=== PATIENT | female | born 1995 | race Caucasian/White ===

== ENCOUNTER 2016-06-11 16:11 | Emergency (ER) | payer OTHER ==
[2016-06-11 16:23] VITALS: BP 125/65; PULSE 63; TEMP 97.7; BMI 37.0
--- NOTE | 2016-06-11 16:37 | PDOC ---
History of Present Illness - General Chief Complaint: Pain, Acute Stated Complaint: ABD PAIN/NAUSEA Time Seen by Provider: 06/11/16 16:33 History Source: Patient Exam Limitations: No Limitations - History of Present Illness Initial Comments: 06/11/16 16:37 CHIEF COMPLAINT: Abdominal pain HISTORY OF PRESENT ILLNESS: This is an otherwise healthy 21 year old female who presents for evaluation of abdominal pain and nausea. She had a wisdom tooth extracted earlier today and took her first dose of APAP/codeine prior to onset of symptoms. She denies fevers/chills, diarrhea/constipation, dysuria, and abnormal vaginal discharge. She does not recall her LMP. Vital signs on arrival are unremarkable. REVIEW OF SYSTEMS: GENERAL/CONSTITUTIONAL: No fever or chills. No weakness. No weight change. HEAD, EYES, EARS, NOSE AND THROAT: No change in vision. No ear pain or discharge. No sore throat. CARDIOVASCULAR: No chest pain or palpitations. RESPIRATORY: No cough, wheezing, or shortness of breath. GASTROINTESTINAL: See HPI. GENITOURINARY: No dysuria, frequency, or change in urination. MUSCULOSKELETAL: No joint or muscle swelling or pain. No neck or back pain. SKIN: No rash or easy bruising. NEUROLOGIC: No headache, vertigo, loss of consciousness, or loss of sensation. PSYCHIATRIC: No depression or anxiety. ENDOCRINE: No increased thirst. No abnormal weight change. HEMATOLOGIC/LYMPHATIC: No anemia, easy bleeding, or history of blood clots. ALLERGIC/IMMUNOLOGIC: No hives or skin allergy. No latex allergy. PHYSICAL EXAM: GENERAL: The patient is awake, alert, and fully oriented, in no acute distress. ENT: Pupils equal, round and reactive to light, extraocular movements intact, sclera anicteric, conjunctiva clear. Neck supple. LUNGS: Clear to auscultation bilaterally. Normal excursion. No respiratory distress or use of accessory muscles. CV: RRR, S1/S2, no MRG. Cap refill < 2 sec. ABDOMEN: Soft, non-distended, non-tender. EXTREMITIES: Normal range of motion, no edema. NEUROLOGICAL: Normal speech, normal gait. CN II-XII grossly intact. PSYCH: Normal mood, normal affect. SKIN: Warm, dry, normal turgor, no rashes or lesions noted. Past History - Past Medical History Allergies/Adverse Reactions: Allergies Allergy/AdvReac Type Severity Reaction Status Date / Time No Known Drug Allergies Allergy Verified 06/11/16 16:19 Home Medications: Ambulatory Orders Vitamins (Sjr) - 1 tab PO DAILY #30 tablet 11/21/14 Ferrous Sulfate [Feosol] 325 mg PO QID 01/24/16 Ibuprofen [Motrin -] 600 mg PO QID #28 tablet 03/03/16 Cephalexin [Keflex] 500 mg PO Q6H #20 capsule 06/11/16 Ondansetron [Zofran Odt -] 4 mg SL TID PRN #21 od.tablet 06/11/16 Asthma: No Cancer: No Cardiac Disorders: No Diabetes: No HTN: No Seizures: No Thyroid Disease: No Other medical history: DENIES. - Surgical History Cholecystectomy: Yes - Reproductive History (#): 4 Para: 3 Therapeutic (s) & number: No (0) Spontaneous : 0 - Psycho/Social/Smoking Cessation Hx Anxiety: No Suicidal Ideation: No Smoking History: Never smoked Have you smoked in the past 12 months: No Hx Alcohol Use: No Drug/Substance Use Hx: No Substance Use Type: None Hx Substance Use Treatment: No *Physical Exam - Vital Signs Last Vital Signs Temp Pulse Resp BP Pulse Ox 97.7 F 63 19 125/65 99 06/11/16 16:19 06/11/16 16:19 06/11/16 16:19 06/11/16 16:19 06/11/16 16:19 ED Treatment Course - LABORATORY CBC & Chemistry Diagram: 06/11/16 17:20 06/11/16 17:20 Medical Decision Making - Medical Decision Making 06/11/16 17:06 A/P: 21 year old female with abdominal pain and nausea. No tenderness to palpation. Suspect codeine adverse reaction. -Basic labs -Pepcid and Zofran for symptomatic relief -PO trial 06/11/16 18:10 AST mildly elevated at 86. 06/11/16 18:23 UA with trace leukesterase, pos nitrites. Culture sent; will treat with Keflex. 06/11/16 18:33 WBC 17.4. *DC/Admit/Observation/Transfer Diagnosis at time of Disposition: Abdominal pain Qualifiers: Abdominal location: generalized Qualified Code(s): R10.84 - Generalized abdominal pain Urinary tract infection Qualifiers: Urinary tract infection type: acute cystitis Hematuria presence: without hematuria Qualified Code(s): N30.00 - Acute cystitis without hematuria - Discharge Dispostion Disposition: HOME Condition at time of disposition: Stable - Prescriptions Prescriptions: Cephalexin [Keflex] 500 mg PO Q6H #20 capsule Ondansetron [Zofran Odt -] 4 mg SL TID PRN #21 od.tablet PRN Reason: Nausea - Referrals Referrals: Amanda Toure MD [Staff Physician] - 3 days - Patient Instructions Printed Discharge Instructions: DI for Abdominal Pain-Adult, DI for Urinary Tract Infection (UTI) Additional Instructions: You were seen today for abdominal pain. You were diagnosed with urinary tract infection. Take antibiotics as prescribed and use Zofran as prescribed if needed for nausea. Your white blood cell count (indicator of infection) was elevated today at 17.4. One of your liver function tests was also mildly elevated (AST 86). Please follow up with your primary care doctor (referral enclosed if you do not have one) for repeat blood work on Tuesday. Return here for worsening abdominal pain, vomiting/inability to keep down fluids , fever, or any other concerning symptoms.
[2016-06-11] MEDS ORDERED: ONDANSETRON 4 MG/2 ML VIAL IVPUSH ONE (16:52)
[2016-06-11] MEDS ORDERED: FAMOTIDINE 20 MG/50 ML IVPB 50 ML IVPB ONE ×2 (16:52→17:16)
[2016-06-11] MEDS ORDERED: ONDANSETRON 4 MG/2 ML VIAL ONE (17:16)
[2016-06-11 17:41] LABS: BASOPHIL 0.2 % (0-2.0); EOSINOPHIL 0.4 % (0-4.5); MCH 23.9 pg (25.7-33.7); MCHC 32.5 g/dl (32.0-36.0); MEAN CELL VOLUME 73.5 fl (80-96); MEAN PLT VOLUME 8.2 fl (7.5-11.1); NEUTROPHILS 80.9 % (42.8-82.8); PLATELET COUNT 306 K/MM3 (134-434); RDW 15.2 % (11.6-15.6); WHITE BLOOD COUNT 17.4 K/mm3 (4.0-10.0)
[2016-06-11 18:04] LABS: URINE APPEARANCE CLEAR; URINE BILIRUBIN NEGATIVE (NEGATIVE); URINE BLOOD NEGATIVE (NEGATIVE); URINE COLOR YELLOW; URINE GLUCOSE (UA) NEGATIVE (NEGATIVE); URINE KETONE NEGATIVE (NEGATIVE); URINE NITRITE POSITIVE (NEGATIVE); URINE PROTEIN NEGATIVE (NEGATIVE); URINE UROBILINOGEN NEGATIVE E.U./dl (0.2-1.0)
[2016-06-11 18:05] LABS: ALBUMIN 4.2 g/dl (3.4-5.0); ANION GAP 10 (8-16); BILIRUBIN,TOTAL 0.3 mg/dL (0.2-1.0); CALCIUM 9.2 mg/dL (8.5-10.1); CO2 26 mmol/L (21-32); CREATININE 0.4 mg/dL (0.55-1.02); GLUCOSE,RANDOM 91 mg/dL (74-106); SGOT/AST 86 U/L (15-37); SGPT/ALT 77 U/L (12-78)
[2016-06-11 18:06] LABS: ALK PHOS 135 U/L (45-117)
[2016-06-11 18:19] LABS: URINE LEUK ESTERASE TRACE (NEGATIVE)
[2016-06-11] MEDS ORDERED: CEPHALEXIN MONOHYDRATE 500 MG CAPSULE (UD) PO ONE (18:21)
[2016-06-11] MEDS ORDERED: CEPHALEXIN MONOHYDRATE 250 MG CAPSULE (FP) ONE (18:37)
[2016-06-12 00:13] LABS: URINE BACTERIA RARE /hpf (NONE SEEN); URINE MUCUS RARE; URINE RBC 3 /hpf (0-3); URINE WBC 9 /hpf (3-5)
== END 2016-06-11 18:40 | disposition home or self-care (01) ==
LOC: JER 16:11
PROC: 3E033GC Introduction of Other Therapeutic Substance into Peripheral Vein, Percutaneous Approach (ICD-10-PCS; principal; 2016-06-11)
DX: N30.00 Acute cystitis without hematuria (principal)
CPT/HCPCS: 36415; 80053; 81003; 81015; 83690; 84703; 85025; 87086; 87186; 96365; 96375; 99282-25

== ENCOUNTER 2017-08-06 16:49 | Emergency (ER) | payer OTHER ==
[2017-08-06 16:53] VITALS: BP 120/64; PULSE 96; TEMP 99; BMI 37.0
[2017-08-06] MEDS ORDERED: IBUPROFEN 400 MG TABLET (FP) PO ONE ×2 (17:18→17:23)
--- NOTE | 2017-08-06 17:25 | PDOC ---
History of Present Illness - General Chief Complaint: Sore Throat Stated Complaint: DIFFICULTY SWALLOWING Time Seen by Provider: 08/06/17 17:01 History Source: Patient Exam Limitations: No Limitations - History of Present Illness Initial Comments: 08/06/17 17:24 patient came to ER for eval of acute onset pain and difficulty swallowing since yesterday afternoon. Denies fevers but states is difficult to swallow. Timing/Duration: reports: getting worse Severity: reports: mild Past History - Travel Traveled outside of the country in the last 30 days: Yes Close contact w/someone who was outside of country & ill: Yes - Past Medical History Allergies/Adverse Reactions: Allergies Allergy/AdvReac Type Severity Reaction Status Date / Time No Known Drug Allergies Allergy Verified 08/06/17 16:51 Home Medications: Ambulatory Orders NK [No Known Home Medication] 08/06/17 Asthma: No Cancer: No Cardiac Disorders: No COPD: No DVT: No Dementia: No Diabetes: No HTN: No Seizures: No Thyroid Disease: No - Surgical History Cholecystectomy: Yes (x4) - Reproductive History (#): 4 Para: 3 Therapeutic (s) & number: No (0) Spontaneous : 0 - Suicide/Smoking/Psychosocial Hx Smoking History: Never smoked Have you smoked in the past 12 months: No Information on smoking cessation initiated: No Hx Alcohol Use: No Drug/Substance Use Hx: No Substance Use Type: None Hx Substance Use Treatment: No Respiratory Specific PMHX - Complaint Specific PMHX Bronchitis: No Review of Systems - Review of Systems Able to Perform ROS?: Yes Is the patient limited Kinyarwanda proficient: Yes Constitutional: Yes: Symptoms Reported, See HPI, Fever. No: Malaise HEENTM: Yes: Symptoms Reported, See HPI, Throat Pain, Throat Swelling, Mouth Pain, Difficulty Swallowing Respiratory: Yes: See HPI, Cough Cardiac (ROS): No: Symptoms Reported, Chest Pain ABD/GI: No: Constipated, Diarrhea : No: Symptoms Reported Musculoskeletal: Yes: Symptoms Reported, See HPI Neurological: No: Symptoms reported, Headache All Other Systems: Reviewed and Negative *Physical Exam - Vital Signs Last Vital Signs Temp Pulse Resp BP Pulse Ox 99.0 F 96 H 18 120/64 100 08/06/17 16:51 08/06/17 16:51 08/06/17 16:51 08/06/17 16:51 08/06/17 16:51 - Physical Exam General Appearance: Yes: Nourished, Appropriately Dressed, Apparent Distress HEENT: positive: YENNY, TMs Normal, Pharynx Normal, Tonsillar Exudate, Tonsillar Erythema, Nasal Congestion, Rhinorrhea Neck: positive: Tender, Supple, Lymphadenopathy (R), Lymphadenopathy (L) Respiratory/Chest: positive: Lungs Clear, Normal Breath Sounds Musculoskeletal: positive: Normal Inspection Extremity: positive: Normal Capillary Refill, Normal Inspection, Normal Range of Motion Integumentary: positive: Normal Color Neurologic: 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 *DC/Admit/Observation/Transfer Diagnosis at time of Disposition: Strep pharyngitis - Discharge Dispostion Disposition: HOME Condition at time of disposition: Stable Decision to Admit order: No - Referrals Referrals: Kathleen Curry MD [Primary Care Provider] - - Patient Instructions Printed Discharge Instructions: DI for Pharyngitis/Tonsillopharyngitis -- Adult Additional Instructions: Rest, drink lots of fluids: Teas, water, soups Eat cold things: Ice cream, ice pops, ice chips Saltwater gargles Steamy showers/seem to face break up mucus Avoid contact with others until fevers and pain resolved Lots of handwashing and good hygiene, this is contagious You have been treated with Bicillin LA 1.2 million units injection which is a one-time treatment for strep pharyngitis. You will not need to take any further antibiotics. Tylenol or Motrin for fever and pain Followup with private physician in one to 2 days as needed if not improving Return to emergency department for worsened symptoms, fevers, dehydration - Post Discharge Activity Forms/Work/School Notes: Back to Work
[2017-08-06] MEDS ORDERED: PENICILLIN G BENZATHINE 2,400,000 UNIT/4 ML PFS ONE (17:42)
== END 2017-08-06 17:59 | disposition home or self-care (01) ==
LOC: JERFT 16:49
DX: J02.0 Streptococcal pharyngitis (principal); B95.0 Streptococcus, group A, as the cause of diseases classified elsewhere
CPT/HCPCS: 87070; 87077; 87430; 96372; 99281-25

== ENCOUNTER 2018-05-01 01:01 | Emergency (ER) | payer OTHER ==
--- NOTE | 2018-05-01 01:52 | PDOC ---
History of Present Illness - General Stated Complaint: ABD PAIN Time Seen by Provider: 05/01/18 01:52 Past History - Past Medical History Allergies/Adverse Reactions: Allergies Allergy/AdvReac Type Severity Reaction Status Date / Time No Known Drug Allergies Allergy Verified 08/06/17 16:51 Home Medications: Ambulatory Orders NK [No Known Home Medication] 08/06/17 Asthma: No Cancer: No Cardiac Disorders: No COPD: No DVT: No Dementia: No Diabetes: No HTN: No Seizures: No Thyroid Disease: No - Surgical History Cholecystectomy: Yes (x4) - Reproductive History (#): 4 Para: 3 Therapeutic (s) & number: No (0) Spontaneous : 0 - Suicide/Smoking/Psychosocial Hx Smoking History: Never smoked Have you smoked in the past 12 months: No Hx Alcohol Use: No Drug/Substance Use Hx: No Substance Use Type: None Hx Substance Use Treatment: No *DC/Admit/Observation/Transfer - Referrals Referrals: Poonam Juarez MD [Primary Care Provider] - - Patient Instructions - Post Discharge Activity
[2018-05-01 02:13] VITALS: BMI 39.0
--- NOTE | 2018-05-01 02:34 | PDOC ---
History of Present Illness - General Chief Complaint: Pain Stated Complaint: ABD PAIN Time Seen by Provider: 05/01/18 01:52 History Source: Patient Exam Limitations: No Limitations - History of Present Illness Initial Comments: 05/01/18 02:22 Patient is a 23 year old female with pmhx cholecystectomy, C/S x 4, c/o epigastric pain x 1 hour ago. Pain is a burning, tightening/squeezing 8/10 in the epigastrum that radiates midline to the umbilicus and straight to the back that is assoc/w SOB when she get the pain. States she has been taking Motrin x 1 week intermittently for a wisdom tooth pain post extraction x 3. States tonight was laying on the stomach when the pain started. Denies nausea, vomiting , fever, chills, constipation, diarrhea. No prior episode of this type of pain. PMD: Dr. Cottrell PMHX: neg PSOCHx: neg cig, etoh, durgs ALL: NKDA GENERAL/CONSTITUTIONAL: No fever or chills. No weakness. No weight change. HEAD, EYES, EARS, NOSE AND THROAT: No change in vision. No ear pain or discharge. No sore throat. CARDIOVASCULAR: No chest pain or shortness of breath. RESPIRATORY: No cough, wheezing, or hemoptysis. GASTROINTESTINAL: No nausea, vomiting, diarrhea or constipation. No rectal bleeding. GENITOURINARY: No dysuria, frequency, or change in urination. MUSCULOSKELETAL: No joint or muscle swelling or pain. No neck or back pain. SKIN AND BREASTS: No rash or easy bruising. NEUROLOGIC: No headache, vertigo, loss of consciousness, or loss of sensation. PSYCHIATRIC: No depression or anxiety. ENDOCRINE: No increased thirst. No abnormal weight change. HEMATOLOGIC/LYMPHATIC: No anemia, easy bleeding, or history of blood clots. ALLERGIC/IMMUNOLOGIC: No hives or skin allergy. No latex allergy. GENERAL: The patient is awake, alert, and fully oriented, in no acute distress. HEAD: Normal with no signs of trauma. EYES: Pupils equal, round and reactive to light, extraocular movements intact, sclera anicteric, conjunctiva clear. ENT: Ears normal, nares patent, oropharynx clear without exudates. Moist mucous membranes. NECK: Normal range of motion, supple without lymphadenopathy, JVD, or masses. LUNGS: Breath sounds equal, clear to auscultation bilaterally. No wheezes, and no crackles. HEART: Regular rate and rhythm, normal S1 and S2 without murmur, rub. ABDOMEN: Soft, (+) tenderness to the epigastrum, normoactive bowel sounds. No guarding, no rebound. No masses. EXTREMITIES: Normal range of motion, no edema. No clubbing or cyanosis. No cords, erythema, or tenderness. NEUROLOGICAL: Cranial nerves II through XII grossly intact. Normal speech, normal gait. PSYCH: Normal mood, normal affect. SKIN: Warm, Dry, normal turgor, no rashes or lesions noted. Past History - Past Medical History Allergies/Adverse Reactions: Allergies Allergy/AdvReac Type Severity Reaction Status Date / Time No Known Drug Allergies Allergy Verified 05/01/18 02:13 Home Medications: Ambulatory Orders NK [No Known Home Medication] 08/06/17 Asthma: No Cancer: No Cardiac Disorders: No COPD: No DVT: No Dementia: No Diabetes: No HTN: No Seizures: No Thyroid Disease: No - Surgical History Cholecystectomy: Yes (x4) - Reproductive History (#): 4 Para: 3 Therapeutic (s) & number: No (0) Spontaneous : 0 - Suicide/Smoking/Psychosocial Hx Smoking History: Never smoked Have you smoked in the past 12 months: No Information on smoking cessation initiated: No Hx Alcohol Use: No Drug/Substance Use Hx: No Substance Use Type: None Hx Substance Use Treatment: No *Physical Exam - Vital Signs Last Vital Signs Temp Pulse Resp BP Pulse Ox 98.1 F 83 18 118/67 100 05/01/18 01:05 05/01/18 01:05 05/01/18 01:05 05/01/18 01:05 05/01/18 01:05 Moderate Sedation - Procedure Monitoring Vital Signs: Procedure Monitoring Vital Signs Temperature 98.1 F 05/01/18 01:05 Pulse Rate 83 05/01/18 01:05 Respiratory Rate 18 05/01/18 01:05 Blood Pressure 118/67 05/01/18 01:05 O2 Sat by Pulse Oximetry (%) 100 05/01/18 01:05 ED Treatment Course - LABORATORY CBC & Chemistry Diagram: 05/01/18 02:40 05/01/18 02:40 Medical Decision Making - Medical Decision Making 05/01/18 02:22 Patient is a 23 year old female with pmhx cholecystectomy, C/S x 4, c/o epigastric pain x 1 hour ago. Pain is a burning, tightening/squeezing 8/10 in the epigastrum that radiates midline to the umbilicus and straight to the back that is assoc/w SOB when she get the pain. States she has been taking Motrin x 1 week intermittently for a wisdom tooth pain post extraction x 3. States tonight was laying on the stomach when the pain started. Denies nausea, vomiting , fever, chills, constipation, diarrhea. No prior episode of this type of pain. 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 FINDINGS: Lung bases are clear. The visualized cardiac chambers are normal size and configuration. Status post cholecystectomy without biliary duct dilation. Normal liver, spleen, adrenal glands and kidneys. The stomach and abdominal small and large bowel are normal. There is no aortic aneurysm. There is no significant retroperitoneal lymphadenopathy. The pelvic small and large bowel are normal. The appendix is normal. The uterus and adnexal structures are normal. Urinary bladder is unremarkable. There is no pelvic free fluid. No discrete pelvic lymphadenopathy is identified. IMPRESSION: No localizing signs for acute pathology. One or more of the following dose reduction techniques were used: automated exposure control, adjustment of the mA and/or kV according to patient size, use of iterative reconstructive technique. THIS DOCUMENT HAS BEEN ELECTRONICALLY SIGNED Saurabh La MD 05/01/2018 06:10 MICHAEL MRadha Please call Imaging Cinder Crane Operator [phone] ([phone]) with questions. INTERPRETING RADIOLOGIST: Nabeel La MD Electronically Signed: May 01, 2018 06:11AM EST 05/01/18 06:[address] Hurtado 2 with no response. Patient is tolerating by mouth, has no nausea or vomiting and her pain is controlled. Patient wished instructions to return to the emergency room for worsening symptoms and to follow up with GI on the primary care doctor. I discussed the physical exam findings, ancillary test results and final diagnoses with the patient. I answered all of the patient's questions. The patient was satisfied with the care received and felt comfortable with the discharge plan and treatment plan. The Patient agrees to follow up with the primary care physician within 24-72 hours. *DC/Admit/Observation/Transfer Diagnosis at time of Disposition: Elevated lipase, Elevated liver function tests Abdominal pain Qualifiers: Abdominal location: epigastric Qualified Code(s): R10.13 - Epigastric pain - Discharge Dispostion Disposition: HOME Condition at time of disposition: Stable - Referrals Referrals: Poonam Juarez MD [Primary Care Provider] - Dominic Barbosa MD [Staff Physician] - - Patient Instructions Additional Instructions: Your Discharge Instructions: You must call primary care physician within 24 hours to arrange follow-up. Return to the Emergency Department with any new, persistent or worsening symptoms, for fever, chills, nausea, vomiting, SOB, dizziness or any other concerning changes that may occur. Your amylase, liver enzymes are elevated and it is imperative that you see a digital performance analyst immediately. - Post Discharge Activity
[2018-05-01] MEDS ORDERED: FAMOTIDINE 20 MG/50 ML IVPB 20 MG/50 ML MG IVPB ONE ×2 (02:35→02:40)
[2018-05-01] MEDS ORDERED: ACETAMINOPHEN 1000 MG/100 ML VIAL (NON FORMULARY) IVPB ONE (02:42)
[2018-05-01 02:56] LABS: BASO % 0.4 % (0-2.0); EOS % 2.6 % (0-4.5); HEMOGLOBIN 12.9 GM/dL (10.7-15.3); LYMPH % 25.3 % (8-40); MCH 26.5 pg (25.7-33.7); MCHC 33.9 g/dl (32.0-36.0); MEAN PLT VOLUME 7.9 fl (7.5-11.1); MONO % 6.5 % (3.8-10.2); NEUT % 65.2 % (42.8-82.8); PLATELET COUNT 277 K/MM3 (134-434); RBC 4.88 M/mm3 (3.60-5.2); WHITE BLOOD COUNT 9.9 K/mm3 (4.0-10.0)
[2018-05-01 03:50] LABS: ALBUMIN 3.9 g/dl (3.4-5.0); ALK PHOS 138 U/L (45-117); AMYLASE 84 U/L (25-115); ANION GAP 7 MMOL/L (8-16); BILIRUBIN,TOTAL 0.3 mg/dL (0.2-1); BLOOD UREA NITROGEN 10 mg/dL (7-18); CALCIUM 8.5 mg/dL (8.5-10.1); CHLORIDE 103 mmol/L (98-107); CO2 27 mmol/L (21-32); CREATININE 0.5 mg/dL (0.55-1.3); GLUCOSE,RANDOM 108 mg/dL (74-106); LIPASE 811 U/L (73-393); SGOT/AST 182 U/L (15-37); SGPT/ALT 113 U/L (13-61); SODIUM 137 mmol/L (136-145); TOT PROT 7.5 g/dl (6.4-8.2)
[2018-05-01] MEDS ORDERED: SODIUM CHLORIDE 1,000 ML IV STA (07:41)
--- NOTE | 2018-05-01 07:41 | PDOC ---
*Physical Exam - Vital Signs Last Vital Signs Temp Pulse Resp BP Pulse Ox 98.1 F 83 18 118/67 100 05/01/18 01:05 05/01/18 01:05 05/01/18 01:05 05/01/18 01:05 05/01/18 01:05 - Physical Exam General Appearance: Yes: Appropriately Dressed. No: Apparent Distress HEENT: positive: Normal Voice Neck: positive: Supple Respiratory/Chest: negative: Respiratory Distress Gastrointestinal/Abdominal: positive: Soft. negative: Tender Musculoskeletal: negative: CVA Tenderness Integumentary: positive: Dry, Warm Neurologic: positive: Fully Oriented, Alert, Normal Mood/Affect ED Treatment Course - LABORATORY CBC & Chemistry Diagram: 05/01/18 02:40 05/01/18 02:40 - ADDITIONAL ORDERS Additional order review: Laboratory Results 05/01/18 02:40 Sodium 137 Potassium 4.0 Chloride 103 Carbon Dioxide 27 Anion Gap 7 L BUN 10 Creatinine 0.5 L Creat Clearance w eGFR > 60 Random Glucose 108 H Calcium 8.5 Total Bilirubin 0.3 AST 182 H ALT 113 H Alkaline Phosphatase 138 H Total Protein 7.5 Albumin 3.9 Total Amylase 84 Lipase 811 H Beta HCG, Quant < 1.0 05/01/18 02:40 RBC 4.88 MCV 78.0 L MCHC 33.9 RDW 14.0 MPV 7.9 Neutrophils % 65.2 Lymphocytes % 25.3 D Monocytes % 6.5 Eosinophils % 2.6 D Basophils % 0.4 - Medications Given in the ED: ED Medications Discontinued Medications Generic Name Dose Route Start Last Admin Trade Name Freq PRN Reason Stop Dose Admin Acetaminophen 1,000 mg 05/01/18 02:42 05/01/18 03:01 Ofirmev Injection - IVPB 05/01/18 02:43 1,000 mg ONCE ONE Administration Famotidine/Sodium Chloride 20 mg in 50 mls @ 100 mls/hr 05/01/18 02:35 02:48 Pepcid 20 Mg Premixed Ivpb - IVPB 05/01/18 03:04 100 mls/hr ONCE ONE Administration Medical Decision Making - Medical Decision Making 05/01/18 07:39 Pt signed out to me at 7am 23 yo F, s/p tiara ~6 years ago, here w/ epigastric pain radiating to umbilicus x 2 days. No n/v/f/c/d/c. Lipase found to be elevated to >800 w/ elevated LFTs. CT unremarkable. US pending to assess for possible retained stone. Pain currently improved w/ tylenol. Pt denies ETOH use 05/01/18 12:04 Ultrasound read as fatty liver w/ no intra/extrahepatic ductal dilatation. Patient remains asymptomatic at this time. Will discuss dispo with GI 05/01/18 12:05 05/01/18 12:52 Case d/w Dr Gonzalez who states pt can be discharged given pt has no abd pain, n/v at this time and was witnessed tolerating po here. Had lengthy d/w pt regarding her diagnosis of pancreatitis. Patient to return to ER for recurrence of pain and/or worsening of symptoms. Otherwise to follow-up with GI *DC/Admit/Observation/Transfer Diagnosis at time of Disposition: Elevated lipase, Elevated liver function tests Abdominal pain Qualifiers: Abdominal location: epigastric Qualified Code(s): R10.13 - Epigastric pain Pancreatitis Qualifiers: Chronicity: acute Pancreatitis type: unspecified pancreatitis type Acute pancreatitis complication: no infection or necrosis Qualified Code(s): K85.90 - Acute pancreatitis without necrosis or infection, unspecified - Discharge Dispostion Disposition: HOME Condition at time of disposition: Improved - Referrals Referrals: Poonam Juarez MD [Primary Care Provider] - Dominic Barbosa MD [Staff Physician] - - Patient Instructions Printed Discharge Instructions: Acute Pancreatitis Additional Instructions: Your Discharge Instructions: You must call primary care physician within 24 hours to arrange follow-up. Return to the Emergency Department with any new, persistent or worsening symptoms, for fever, chills, nausea, vomiting, SOB, dizziness or any other concerning changes that may occur. Your amylase, liver enzymes are elevated and it is imperative that you see a cement handler immediately. - Post Discharge Activity
[2018-05-01 07:59] VITALS: BP 140/81; PULSE 92; TEMP 98
== END 2018-05-01 13:20 | disposition home or self-care (01) ==
LOC: JER 01:01
PROC: 3E0337Z Introduction of Electrolytic and Water Balance Substance into Peripheral Vein, Percutaneous Approach (ICD-10-PCS; principal; 2018-05-01)
PROC: 3E033GC Introduction of Other Therapeutic Substance into Peripheral Vein, Percutaneous Approach (ICD-10-PCS; 2018-05-01)
PROC: 3E033NZ Introduction of Analgesics, Hypnotics, Sedatives into Peripheral Vein, Percutaneous Approach (ICD-10-PCS; 2018-05-01)
DX: K85.90 Acute pancreatitis without necrosis or infection, unspecified (principal); R74.8 Abnormal levels of other serum enzymes; R94.5 Abnormal results of liver function studies
CPT/HCPCS: 36415; 74177-TC; 76700-TC; 80053; 82150; 83690; 84702; 85025; 96361; 96365; 96375; 99282-25; J0131; J7030

== ENCOUNTER 2019-11-20 20:49 | Emergency (ER) | payer OTHER ==
--- NOTE | 2019-11-20 21:17 | PDOC ---
Rapid Medical Evaluation Chief Complaint: Pain, Acute Time Seen by Provider: 11/20/19 21:14 Medical Evaluation: Allergies Allergy/AdvReac Type Severity Reaction Status Date / Time No Known Drug Allergies Allergy Verified 05/01/18 02:13 11/20/19 21:15 I have performed a brief in-person evaluation of this patient. The patient presents with a chief complaint of: intermittent lower cramping pelvic pain with urinary frequency and irregular menses. pt using nexplanon control which is due to be changed. Denies vaginal bleeding now. Pertinent physical exam findings: A&O x 3 in NAD I have ordered the following: UA,HCG,UCx, GC/CHL test The patient will proceed to the ED for further evaluation. Discharge Disposition - Diagnosis Pelvic pain - Discharge Dispostion Condition at time of disposition: Stable - Referrals - Patient Instructions - Post Discharge Activity
[2019-11-20 21:26] VITALS: BP 131/72; PULSE 84; TEMP 97.2; BMI 29.9
--- NOTE | 2019-11-20 22:35 | PDOC ---
History of Present Illness - General Chief Complaint: Pain, Acute Stated Complaint: ABD PAIN Time Seen by Provider: 11/20/19 21:14 - History of Present Illness Initial Comments: 11/20/19 22:29 24-year-old female without comorbidities presents for evaluation of pelvic cramping which started today. She has an implantable control in her left arm and over the last year she has been intermittently spotting which is normal. The pelvic cramping started today. Past History - Medical History Allergies/Adverse Reactions: Allergies Allergy/AdvReac Type Severity Reaction Status Date / Time No Known Drug Allergies Allergy Verified 05/01/18 02:13 Home Medications: Ambulatory Orders NK [No Known Home Medication] 08/06/17 Asthma: No Cancer: No Cardiac Disorders: No COPD: No DVT: No Dementia: No Diabetes: No HTN: No Seizures: No Thyroid Disease: No - Surgical History Cholecystectomy: Yes (x4) - Reproductive History Is Patient Now?: No (#): 4 Para: 3 Therapeutic (s) & number: No (0) Spontaneous : 0 - Psycho-Social/Smoking History Smoking History: Never smoked Have you smoked in the past 12 months: No - Substance Abuse Hx (Audit-C & DAST Scrn) How often the patient has a drink containing alcohol: Never Score: In Men: 4 or > Positive; In Women: 3 or > Positive: 0 Screen Result (Pos requires Nsg. Audit-10AR): Negative Review of Systems - Review of Systems : Yes: Pain. No: Burning, Dysuria *Physical Exam - Vital Signs Last Vital Signs Temp Pulse Resp BP Pulse Ox 97.2 F L 84 20 131/72 100 11/20/19 21:16 11/20/19 21:16 11/20/19 21:16 11/20/19 21:16 11/20/19 21:16 - Physical Exam General Appearance: Yes: Appropriately Dressed, Obese. No: Apparent Distress HEENT: positive: Normal ENT Inspection, Normal Voice, Symmetrical Neck: positive: Supple. negative: Rigid Respiratory/Chest: positive: Normal Breath Sounds. negative: Respiratory Distress Female Pelvic Exam: positive: other (Female pelvic examination done with Jojo Avalos in the room nurse practitioner who is taking over the case. Mild cervical motion tenderness right and left adnexal tenderness. No discharge. External genitalia is normal.) Musculoskeletal: positive: Normal Inspection Extremity: positive: Normal Inspection Integumentary: positive: Normal Color, Dry, Warm Medical Decision Making - Medical Decision Making 11/20/19 22:31 test pending ultrasound will be ordered pending results. 11/20/19 22:39 Patient signed out to overnight provider Discharge - Discharge Information Problems reviewed: Yes Clinical Impression/Diagnosis: Pelvic pain Condition: Stable - Follow up/Referral - Patient Discharge Instructions - Post Discharge Activity
--- NOTE | 2019-11-20 23:28 | PDOC ---
*Physical Exam - Vital Signs Last Vital Signs Temp Pulse Resp BP Pulse Ox 97.2 F L 84 20 131/72 100 11/20/19 21:16 11/20/19 21:16 11/20/19 21:16 11/20/19 21:16 11/20/19 21:16 Medical Decision Making - Medical Decision Making 11/21/19 01:41 US and UA negative, will d/c home Discharge - Discharge Information Problems reviewed: Yes Clinical Impression/Diagnosis: Pelvic pain Ovarian cyst Qualifiers: Laterality: left Qualified Code(s): N83.202 - Unspecified ovarian cyst, left side Condition: Stable Disposition: HOME - Follow up/Referral Referrals: Jmii Marte MD [Staff Physician] - Call tomorrow - Patient Discharge Instructions Patient Printed Discharge Instructions: DI for Pelvic Pain Additional Instructions: Take ibuprofen every 6 hours as needed for pain. It is important that you follow-up with the wholesale representative. Return to the emergency room for any worsening symptoms. Return to the ER if you are soaking 2 pads per hour, severe abdominal pain, or worsening symptoms. - Post Discharge Activity Work/Back to School Note: Back to Work
[2019-11-21 00:15] LABS: HCG,QUALITATIVE URINE Negative
[2019-11-21] MEDS ORDERED: IBUPROFEN 600 MG TABLET (FP) PO ONE ×2 (00:22→00:32)
[2019-11-21 01:35] LABS: URINE APPEARANCE CLEAR; URINE BILIRUBIN NEGATIVE (NEGATIVE); URINE COLOR YELLOW; URINE GLUCOSE (UA) NEGATIVE (NEGATIVE); URINE KETONE NEGATIVE (NEGATIVE); URINE LEUK ESTERASE NEGATIVE (NEGATIVE); URINE NITRITE NEGATIVE (NEGATIVE); URINE PROTEIN NEGATIVE (NEGATIVE); URINE UROBILINOGEN 0.2 mg/dL (0.2-1.0)
== END 2019-11-21 01:59 | disposition home or self-care (01) ==
LOC: JER 20:49 → JERFT 20:49 → JER 11-21 01:59
DX: R10.2 Pelvic and perineal pain (principal); N83.202 Unspecified ovarian cyst, left side
CPT/HCPCS: 36415; 76830-TC; 81003; 84703; 87491; 87591; 99284-25

== ENCOUNTER 2019-12-18 09:02 | Emergency (ER) | payer OTHER ==
[2019-12-18 09:13] VITALS: BP 125/81; PULSE 80; TEMP 98.4; BMI 35.2
--- NOTE | 2019-12-18 09:33 | PDOC ---
History of Present Illness - General Chief Complaint: Eye Problem Stated Complaint: LFT EYE INJURY ([id number] Time Seen by Provider: 12/18/19 09:19 History Source: Patient Exam Limitations: No Limitations - History of Present Illness Initial Comments: 12/18/19 09:27 Patient is a 24-year-old female who presents to the ED with left upper eyelid swelling and pain that started yesterday. She states she woke up yesterday and noticed that the eyelid was swollen. She states today it was worse. It feels warm to touch and hurts. She denies any fevers or chills. She denies any eye crusting shut. She denies any visual changes. She does not wear contact lenses or glasses. The patient has not taken anything for her symptoms. She denies any allergies to medications. She has no past medical history. Past History - Medical History Allergies/Adverse Reactions: Allergies Allergy/AdvReac Type Severity Reaction Status Date / Time No Known Drug Allergies Allergy Verified 12/18/19 09:11 Home Medications: Ambulatory Orders Erythromycin 0.5% Eye Ointment [Erythromycin 0.5% Eye Ointment -] 1 applic OS BID 7 Days #1 tube 12/18/19 Asthma: No Cancer: No Cardiac Disorders: No COPD: No DVT: No Dementia: No Diabetes: No HTN: No Seizures: No Thyroid Disease: No - Surgical History Cholecystectomy: Yes (x4) - Reproductive History Is Patient Now?: No (#): 4 Para: 3 Therapeutic (s) & number: No (0) Spontaneous : 0 - Immunization History Immunization Up to Date: No - Psycho-Social/Smoking History Smoking History: Never smoked Have you smoked in the past 12 months: No - Substance Abuse Hx (Audit-C & DAST Scrn) How often the patient has a drink containing alcohol: Never Score: In Men: 4 or > Positive; In Women: 3 or > Positive: 0 Screen Result (Pos requires Nsg. Audit-10AR): Negative In the last yr the pt used illegal drug/Rx for NonMed reason: No Score: Yes response is considered Positive: 0 Screen Result (Positive result requires Nsg. DAST-10): Negative Review of Systems - Review of Systems Comments:: 12/18/19 09:31 - Review of Systems Able to Perform ROS?: Yes Constitutional: No: Fever, Chills, Loss of Appetite, Night Sweats, Weakness HEENTM: No: Vision changes, Ear Pain, Throat Pain, Throat Swelling, Mouth Pain, Difficulty Swallowing; positive: Left eyelid swelling Respiratory: No: Cough, Shortness of Breath, Wheezing, Sputum Production Cardiac (ROS): No: Chest Pain, Chest Tightness, Palpitations, Irregular Heart Beat, Edema ABD/GI: No: Nausea, Vomiting, Abdominal Pain, Diarrhea : No Dysuria, No Hematuria, No Frequency, No Urgency Musculoskeletal: No: Muscle Pain, Back Pain, Joint Pain, Muscle Weakness, Neck Pain Integumentary: No: Lesions, Rash Neurological: No: Headache, Numbness, Tingling, Weakness, Speech Difficulties *Physical Exam - Vital Signs Last Vital Signs Temp Pulse Resp BP Pulse Ox 98.4 F 80 18 125/81 99 12/18/19 09:11 12/18/19 09:11 12/18/19 09:11 12/18/19 09:11 12/18/19 09:11 - Physical Exam 12/18/19 09:31 - Physical Exam General Appearance: Nourished, Appropriately Dressed, No Distress HEENT: EOMI, Normal Voice, No Pharyngeal Erythema, No Muffled/Hoarse voice, No Tonsillar Exudate, No Tonsillar Erythema, No Nasal Congestion, No Rhinorrhea, Hearing Grossly Normal, TMs Normal, No TM Bulging, No TM Dullness, No TM Erythema; left upper eyelid with mild edema without significant erythema. No warmth to touch. Palpable hordeolum appreciated. No drainage. No conjunctival injection. EOMI without difficulty. No significant tenderness to palpation. No crepitus. Neck: Supple, No Lymphadenopathy (R), No Lymphadenopathy (L), No Rigidity, No Decreased range of motion Respiratory/Chest: Lungs Clear, Normal Breath Sounds. No Respiratory Distress, No Accessory Muscle Use Cardiovascular: Regular Rhythm, Regular Rate, S1, S2 Musculoskeletal: Normal Inspection. No Decreased Range of Motion Extremity: Normal Capillary Refill, Normal Inspection Integumentary: Normal Color, Dry. No Rash Neurologic: drapery sewer hand II-XII NML intact, Fully Oriented, Alert, Normal Mood/Affect, Normal Response Medical Decision Making - Medical Decision Making 12/18/19 09:33 Assessment: Patient is a 24-year-old female with left upper eyelid swelling and a hordeolum. Plan: -Patient advised to do warm compresses several times daily -Erythromycin ointment sent to her pharmacy -Patient to follow-up with her primary doctor within 1 to 2 days for repeat evaluation -She understands and agrees with this treatment plan and she is stable for discharge Discharge - Discharge Information Problems reviewed: Yes Clinical Impression/Diagnosis: Hordeolum internum left upper eyelid Blepharitis, left eye Qualifiers: Blepharitis type: unspecified type Eyelid: upper Qualified Code(s): H01.004 - Unspecified blepharitis left upper eyelid Condition: Stable Disposition: HOME - Additional Discharge Information Prescriptions: Erythromycin 0.5% Eye Ointment [Erythromycin 0.5% Eye Ointment -] 1 applic OS BID 7 Days #1 tube - Follow up/Referral Referrals: Ricarda Rosen [Primary Care Provider] - Call tomorrow - Patient Discharge Instructions Patient Printed Discharge Instructions: DI for Blepharitis, DI for Hordeolum Additional Instructions: Apply warm compresses to your left eyelid 3-4 times daily. Be sure to not share towels with others as this can cause the infection to spread. Avoid rubbing your eye or touching your eye with your hands. Keep the eye clean from all mucus and wash with gentle soap and water if mucus develops. Use the ointment as prescribed. Follow-up with your primary doctor in 1 to 2 days for repeat evaluation. - Post Discharge Activity Work/Back to School Note: Back to Work
== END 2019-12-18 10:57 | disposition home or self-care (01) ==
LOC: JERFT 09:02
DX: H01.004 Unspecified blepharitis left upper eyelid (principal)
CPT/HCPCS: 99283-25

== ENCOUNTER 2020-04-25 19:51 | Emergency (ER) | payer OTHER ==
[2020-04-25 19:56] VITALS: BP 113/59; PULSE 82; TEMP 97.6; BMI 45.1
[2020-04-25] MEDS ORDERED: ACETAMINOPHEN 500 MG TABLET (FP) PO ONE (20:59)
[2020-04-25] MEDS ORDERED: ACETAMINOPHEN 325 MG TABLET (FP) ONE (21:03)
[2020-04-25] MEDS ORDERED: LIDOCAINE 5% TOPICAL PATCH TP ONE (22:05)
[2020-04-25] MEDS ORDERED: IBUPROFEN 600 MG TABLET (FP) PO ONE ×2 (22:05→22:11)
[2020-04-25] MEDS ORDERED: LIDOCAINE 5% TOPICAL PATCH ONE (22:11)
== END 2020-04-25 22:27 | disposition home or self-care (01) ==
LOC: JERFT 19:51 → JER 19:51
DX: R07.89 Other chest pain (principal); W19.XXXA Unspecified fall, initial encounter
CPT/HCPCS: 71101-TC-RT-FY; 99283-25

== ENCOUNTER 2020-06-08 09:07 | Emergency (ER) | payer OTHER ==
[2020-06-08 09:13] VITALS: BP 115/72; PULSE 94; TEMP 97; BMI 44.9
[2020-06-08] MEDS ORDERED: IBUPROFEN 600 MG TABLET (FP) PO ONE ×2 (09:21→09:32)
== END 2020-06-08 11:01 | disposition home or self-care (01) ==
LOC: JER 09:07 → JERFT 09:07
DX: S93.401A Sprain of unspecified ligament of right ankle, initial encounter (principal)
CPT/HCPCS: 73610-TC-RT-FY; 73630-TC-RT-FY; 99284-25

== ENCOUNTER 2021-03-11 14:30 | Emergency (ER) | payer OTHER ==
[2021-03-11 14:52] VITALS: BP 124/70; TEMP 98.9; BMI 54.6
[2021-03-11] MEDS ORDERED: ACETAMINOPHEN 325 MG TABLET (FP) PO ONE (16:49)
[2021-03-11] MEDS ORDERED: ACETAMINOPHEN 325 MG TABLET (FP) ONE (16:59)
[2021-03-11 18:13] LABS: BASO % 0.1 % (0-2.0); EOS % 0.4 % (0-4.5); HEMATOCRIT 39.2 % (32.4-45.2); HEMOGLOBIN 12.9 GM/dL (10.7-15.3); LYMPH % 9.4 % (8-40); MCH 25.5 pg (25.7-33.7); MEAN CELL VOLUME 77.3 fl (80-96); MEAN PLT VOLUME 7.8 fl (7.5-11.1); MONO % 5.6 % (3.8-10.2); NEUT % 84.5 % (42.8-82.8); PLATELET COUNT 290 10^3/uL (134-434); RBC 5.07 M/mm3 (3.60-5.2); RDW 13.7 % (11.6-15.6); WHITE BLOOD COUNT 11.9 K/mm3 (4.0-10.0)
[2021-03-11 18:22] VITALS: PULSE 91
[2021-03-11 19:14] LABS: ALBUMIN 3.9 g/dl (3.4-5.0); BLOOD UREA NITROGEN 8.4 mg/dL (7-18); CALCIUM 9.2 mg/dL (8.5-10.1)
[2021-03-11 19:18] LABS: CREATININE 0.5 mg/dL (0.55-1.3)
[2021-03-11 19:20] LABS: BILIRUBIN,TOTAL 0.4 mg/dL (0.2-1); TOT PROT 7.8 g/dl (6.4-8.2)
[2021-03-12 20:07] LABS: SARS-CoV-2 NAA Not Detected (Not Detected)
== END 2021-03-11 19:55 | disposition home or self-care (01) ==
LOC: JERFT 14:30
DX: K64.9 Unspecified hemorrhoids (principal)
CPT/HCPCS: 36415; 80053; 82272; 85025; 99283-25; C9803-CS; U0003; U0005

== ENCOUNTER 2021-07-29 16:29 | Emergency (ER) | payer OTHER ==
[2021-07-29 17:25] VITALS: BP 115/60; PULSE 83; TEMP 98; BMI 44.9
[2021-07-29] MEDS ORDERED: KETOROLAC TROMETHAMINE 30 MG/1 ML VIAL IM ONE (18:01)
[2021-07-29] MEDS ORDERED: LIDOCAINE 5% TOPICAL PATCH TP ONE (18:01)
[2021-07-29] MEDS ORDERED: LIDOCAINE 5% TOPICAL PATCH ONE (18:32)
[2021-07-29] MEDS ORDERED: KETOROLAC TROMETHAMINE 30 MG/1 ML VIAL ONE (18:32)
[2021-07-30] MEDS ORDERED: LIDOCAINE PATCH REMOVAL MC SCH (06:00)
== END 2021-07-29 19:22 | disposition home or self-care (01) ==
LOC: JERFT 16:29
PROC: 3E0233Z Introduction of Anti-inflammatory into Muscle, Percutaneous Approach (ICD-10-PCS; principal; 2021-07-29)
DX: M54.2 Cervicalgia (principal); M79.641 Pain in right hand; M79.662 Pain in left lower leg; M54.9 Dorsalgia, unspecified; V89.2XXA Person injured in unspecified motor-vehicle accident, traffic, initial encounter
CPT/HCPCS: 71046-TC-FY; 73130-TC-RT-FY; 73590-TC-LT-FY; 99284-25

== ENCOUNTER 2022-07-01 11:14 | Emergency (ER) | payer OTHER ==
[2022-07-01 11:21] VITALS: TEMP 98.4; BMI 44.9
[2022-07-01] MEDS ORDERED: ACETAMINOPHEN 500 MG TABLET (FP) PO ONE (12:27)
[2022-07-01] MEDS ORDERED: ACETAMINOPHEN 500 MG TABLET (FP) ONE (12:35)
[2022-07-01 13:21] LABS: EPI CELLS >36 /uL (0-25.1); HYALINE CASTS 17 /uL (0-3.1); PH,URINE 5.5 (5.0-8.0); URINE APPEARANCE CLOUDY; URINE BILIRUBIN NEGATIVE (NEGATIVE); URINE COLOR ORANGE; URINE GLUCOSE (UA) NEGATIVE (NEGATIVE); URINE KETONE TRACE (NEGATIVE); URINE LEUK ESTERASE 1+ (NEGATIVE); URINE NITRITE NEGATIVE (NEGATIVE); URINE PROTEIN 3+ (NEGATIVE); URINE RBC 315 /uL (0-23.9); URINE WBC 27 /uL (0-25.8)
[2022-07-01 13:52] LABS: URINE BACTERIA 400 /uL (0-1359)
[2022-07-01 15:15] LABS: BASO % 0.2 % (0-2.0); EOS % 0.8 % (0-4.5); HEMATOCRIT 34.2 % (32.4-45.2); HEMOGLOBIN 11.4 GM/dL (10.7-15.3); LYMPH % 12.9 % (8-40); MCH 25.4 pg (25.7-33.7); MCHC 33.2 g/dl (32.0-36.0); MEAN CELL VOLUME 76.5 fl (80-96); MEAN PLT VOLUME 7.6 fl (7.5-11.1); MONO % 4.3 % (3.8-10.2); NEUT % 81.8 % (42.8-82.8); PLATELET COUNT 345 10^3/uL (134-434); RBC 4.48 M/mm3 (3.60-5.2); RDW 14.6 % (11.6-15.6); WHITE BLOOD COUNT 17.2 K/mm3 (4.0-10.0)
[2022-07-01 15:27] LABS: CALCIUM 8.9 mg/dL (8.5-10.1)
[2022-07-01 15:28] LABS: ALBUMIN 3.4 g/dl (3.4-5.0); BLOOD UREA NITROGEN 10.6 mg/dL (7-18)
[2022-07-01 15:31] LABS: CREATININE 0.5 mg/dL (0.55-1.3)
[2022-07-01 15:32] LABS: BILIRUBIN,TOTAL 0.4 mg/dL (0.2-1); TOT PROT 6.8 g/dl (6.4-8.2)
[2022-07-01 16:02] VITALS: BP 113/70; PULSE 74; RESP 20
== END 2022-07-01 16:23 | disposition home or self-care (01) ==
LOC: JER 11:14
DX: N12 Tubulo-interstitial nephritis, not specified as acute or chronic (principal); R31.0 Gross hematuria; R10.9 Unspecified abdominal pain; N89.8 Other specified noninflammatory disorders of vagina
CPT/HCPCS: 36415; 74176-TC; 76775-TC; 80053; 81003; 84703; 85025; 87086; 87186; 87491; 87591; 99285-25

== ENCOUNTER 2022-08-28 14:47 | Emergency (ER) | payer OTHER ==
[2022-08-28 14:52] VITALS: RESP 18; BMI 44.9
[2022-08-28 16:03] LABS: BASO % 0.1 % (0-2.0); EOS % 1.1 % (0-4.5); HEMOGLOBIN 11.2 GM/dL (10.7-15.3); LYMPH % 24.9 % (8-40); MCH 25.5 pg (25.7-33.7); MCHC 32.9 g/dl (32.0-36.0); MEAN CELL VOLUME 77.4 fl (80-96); MEAN PLT VOLUME 7.6 fl (7.5-11.1); MONO % 5.6 % (3.8-10.2); NEUT % 68.3 % (42.8-82.8); PLATELET COUNT 293 10^3/uL (134-434); RBC 4.39 M/mm3 (3.60-5.2); RDW 14.8 % (11.6-15.6); WHITE BLOOD COUNT 10.2 K/mm3 (4.0-10.0)
[2022-08-28 16:07] LABS: POTASSIUM 3.8 mmol/L (3.5-5.1)
[2022-08-28 16:09] LABS: CALCIUM 9.1 mg/dL (8.5-10.1)
[2022-08-28 16:10] LABS: ALBUMIN 3.3 g/dl (3.4-5.0); BLOOD UREA NITROGEN 7.8 mg/dL (7-18)
[2022-08-28 16:12] LABS: BILIRUBIN,DIRECT 0.1 mg/dL (0.0-0.2)
[2022-08-28 16:13] LABS: CREATININE 0.4 mg/dL (0.55-1.3)
[2022-08-28 16:14] LABS: BILIRUBIN,TOTAL 0.2 mg/dL (0.2-1); TOT PROT 6.8 g/dl (6.4-8.2)
[2022-08-28 17:03] LABS: EPI CELLS 30 /uL (0-25.1); HYALINE CASTS 0 /uL (0-3.1); PH,URINE 6.5 (5.0-8.0); URINE APPEARANCE CLEAR; URINE BACTERIA 742 /uL (0-1359); URINE BILIRUBIN NEGATIVE (NEGATIVE); URINE COLOR YELLOW; URINE GLUCOSE (UA) NEGATIVE (NEGATIVE); URINE KETONE TRACE (NEGATIVE); URINE LEUK ESTERASE NEGATIVE (NEGATIVE); URINE NITRITE NEGATIVE (NEGATIVE); URINE PROTEIN NEGATIVE (NEGATIVE); URINE RBC 16 /uL (0-23.9); URINE UROBILINOGEN 0.2 mg/dL (0.2-1.0); URINE WBC 21 /uL (0-25.8)
[2022-08-28 17:12] LABS: HCG,QUALITATIVE URINE Positive
[2022-08-28 18:22] VITALS: BP 109/73; PULSE 77; TEMP 98.9
== END 2022-08-28 19:21 | disposition home or self-care (01) ==
LOC: JER 14:47
DX: O20.9 Hemorrhage in early pregnancy, unspecified (principal); Z3A.10 10 weeks gestation of pregnancy
CPT/HCPCS: 36415; 76817-TC; 80048; 80076; 81003; 84703; 85025; 86850; 86900; 86901; 87086; 99284-25

== ENCOUNTER 2022-08-30 20:58 | Emergency (ER) | payer OTHER ==
[2022-08-30 21:08] VITALS: BP 118/74; PULSE 76; RESP 18; TEMP 98.4; BMI 44.9
[2022-08-30] MEDS ORDERED: ACETAMINOPHEN 1000 MG/100 ML BAG IVPB ONE (22:03)
[2022-08-30] MEDS ORDERED: ACETAMINOPHEN INJECTION 0 ML IVPB ONE (22:10)
[2022-08-30] MEDS ORDERED: ACETAMINOPHEN 325 MG TABLET (FP) PO ONE (22:23)
[2022-08-30] MEDS ORDERED: ACETAMINOPHEN 325 MG TABLET (FP) ONE (22:44)
[2022-08-30 23:12] LABS: BASO % 0.2 % (0-2.0); HEMATOCRIT 34.5 % (32.4-45.2); HEMOGLOBIN 11.5 GM/dL (10.7-15.3); LYMPH % 14.3 % (8-40); MCH 25.8 pg (25.7-33.7); MCHC 33.4 g/dl (32.0-36.0); MEAN CELL VOLUME 77.3 fl (80-96); MEAN PLT VOLUME 7.7 fl (7.5-11.1); NEUT % 79.5 % (42.8-82.8); PLATELET COUNT 270 10^3/uL (134-434); RBC 4.47 M/mm3 (3.60-5.2); RDW 14.3 % (11.6-15.6); WHITE BLOOD COUNT 8.8 K/mm3 (4.0-10.0)
[2022-08-30 23:12] LABS: PH,URINE 5.5 (5.0-8.0); URINE APPEARANCE CLEAR; URINE BILIRUBIN NEGATIVE (NEGATIVE); URINE COLOR YELLOW; URINE GLUCOSE (UA) NEGATIVE (NEGATIVE); URINE KETONE NEGATIVE (NEGATIVE); URINE LEUK ESTERASE NEGATIVE (NEGATIVE); URINE NITRITE NEGATIVE (NEGATIVE); URINE PROTEIN NEGATIVE (NEGATIVE)
[2022-08-30 23:25] LABS: POTASSIUM 3.5 mmol/L (3.5-5.1)
[2022-08-30 23:27] LABS: ALBUMIN 3.2 g/dl (3.4-5.0); BLOOD UREA NITROGEN 7.4 mg/dL (7-18); CALCIUM 8.8 mg/dL (8.5-10.1)
[2022-08-30 23:30] LABS: CREATININE 0.4 mg/dL (0.55-1.3)
[2022-08-30 23:32] LABS: BILIRUBIN,TOTAL 0.4 mg/dL (0.2-1); TOT PROT 6.9 g/dl (6.4-8.2)
== END 2022-08-31 00:22 | disposition home or self-care (01) ==
LOC: JER 20:58
DX: O26.891 Other specified pregnancy related conditions, first trimester (principal); R10.13 Epigastric pain; Z3A.08 8 weeks gestation of pregnancy
CPT/HCPCS: 36415; 76801-TC; 80053; 81003; 84702; 85025; 87086; 99284-25

== ENCOUNTER 2022-09-19 12:12 | Emergency (ER) | payer OTHER ==
[2022-09-19 12:19] VITALS: BP 129/66; PULSE 86; RESP 18; TEMP 98.2; BMI 44.9
[2022-09-19 13:30] LABS: PH,URINE 6.5 (5.0-8.0); URINE APPEARANCE CLEAR; URINE BILIRUBIN NEGATIVE (NEGATIVE); URINE COLOR YELLOW; URINE GLUCOSE (UA) NEGATIVE (NEGATIVE); URINE KETONE NEGATIVE (NEGATIVE); URINE LEUK ESTERASE NEGATIVE (NEGATIVE); URINE NITRITE NEGATIVE (NEGATIVE); URINE PROTEIN NEGATIVE (NEGATIVE)
[2022-09-19 13:37] LABS: INR 1.03 (0.83-1.09); PROTHROMBIN TIME (PATIENT) 11.9 SEC (9.7-13.0)
[2022-09-19 13:39] LABS: ACTIVATED PTT 32.8 SECONDS (25.2-36.5)
[2022-09-19 13:47] LABS: BASO % 0.2 % (0-2.0); EOS % 1.4 % (0-4.5); HEMOGLOBIN 11.1 GM/dL (10.7-15.3); LYMPH % 26.6 % (8-40); MCH 25.3 pg (25.7-33.7); MCHC 32.6 g/dl (32.0-36.0); MEAN CELL VOLUME 77.7 fl (80-96); MEAN PLT VOLUME 8.1 fl (7.5-11.1); MONO % 5.7 % (3.8-10.2); NEUT % 66.1 % (42.8-82.8); PLATELET COUNT 239 10^3/uL (134-434); RBC 4.37 M/mm3 (3.60-5.2); WHITE BLOOD COUNT 8.3 K/mm3 (4.0-10.0)
[2022-09-19 13:50] LABS: POTASSIUM 3.7 mmol/L (3.5-5.1)
[2022-09-19 13:53] LABS: CALCIUM 9.2 mg/dL (8.5-10.1)
[2022-09-19 13:54] LABS: BLOOD UREA NITROGEN 5.6 mg/dL (7-18)
[2022-09-19 13:57] LABS: CREATININE 0.5 mg/dL (0.55-1.3)
== END 2022-09-19 14:30 | disposition home or self-care (01) ==
LOC: JER 12:12
DX: O20.9 Hemorrhage in early pregnancy, unspecified (principal); Z3A.13 13 weeks gestation of pregnancy
CPT/HCPCS: 36415; 76801-TC; 80048; 81003; 84702; 84703; 85025; 85610; 85730; 86850; 86900; 86901; 87086; 99284-25